=== PATIENT | female | born 1960 | race Caucasian/White ===

== ENCOUNTER 2016-10-12 12:39 | Emergency (ER) | payer OTHER ==
[2016-10-12 12:56] VITALS: BP 134/80
[2016-10-12] MEDS ORDERED: PREDNISONE 20 MG TABLET PO ONE (13:12)
[2016-10-12] MEDS ORDERED: LORATADINE 10 MG TABLET PO ONE (13:12)
[2016-10-12] MEDS ORDERED: FAMOTIDINE 20 MG TABLET PO ONE (13:12)
--- NOTE | 2016-10-12 13:20 | ER Document Report ---
HPI - HPI Patient complains to provider of: Bee sting left arm Onset: Just prior to arrival Onset/Duration: Sudden Quality of pain: Burning Severity: Mild Pain Level: 2 Context: Patient states she was stung under her left arm by a bee about an hour ago. 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 Denies shortness of breath or difficulty swallowing at this time. Associated Symptoms: None Exacerbated by: Denies Relieved by: Denies Similar symptoms previously: Yes Recently seen / treated by doctor: No - ROS ROS below otherwise negative: Yes Systems Reviewed and Negative: Yes All other systems reviewed and negative - CONSTITUTIONAL Constitutional: DENIES: Fever - EENT EENT: DENIES: Sore Throat - NEURO Neurology: DENIES: Headache - CARDIOVASCULAR Cardiovascular: DENIES: Chest pain - RESPIRATORY Respiratory: DENIES: Trouble Breathing - GASTROINTESTINAL Gastrointestinal: DENIES: Abdominal Pain - URINARY Urinary: DENIES: Dysuria - MUSCULOSKELETAL Musculoskeletal: REPORTS: Extremity pain - Burning left upper arm - DERM Skin Color: Erythema Skin Problems: Rash <JOANNA CARDOSO - Last Filed: 10/12/16 13:29> Past Medical History - General Information source: Patient - Social History Smoking Status: Current Every Day Smoker Cigarette use (# per day): Yes Frequency of alcohol use: Occasional Drug Abuse: None Lives with: Family Family History: Reviewed & Not Pertinent Patient has suicidal ideation: No Patient has homicidal ideation: No Pulmonary Medical History: Reports: Hx Asthma, Other - Seasonal allergies Past Surgical History: Reports: Hx Appendectomy, Hx Section, Hx Tonsillectomy <JOANNA CARDOSO - Last Filed: 10/12/16 13:29> Vertical Provider Document - CONSTITUTIONAL Agree With Documented VS: Yes Exam Limitations: No Limitations General Appearance: WD/WN, No Apparent Distress - INFECTION CONTROL TRAVEL OUTSIDE OF THE [place] IN LAST 30 DAYS: No - HEENT HEENT: Atraumatic, Normal ENT Exam, Normocephalic - NECK Neck: Normal Inspection, Supple - RESPIRATORY Respiratory: Breath Sounds Normal, No Respiratory Distress O2 Sat by Pulse Oximetry: 97 - CARDIOVASCULAR Cardiovascular: Regular Rate, Regular Rhythm - MUSCULOSKELETAL/EXTREMETIES Musculoskeletal/Extremeties: ISAIAH SANCHEZ - NEURO Level of Consciousness: Awake, Alert, Appropriate - DERM Integumentary: Warm, Dry, Rash - Redness noted to left inner upper arm. No stinger from bee noted. <JOANNA CARDOSO - Last Filed: 10/12/16 13:29> Course - Vital Signs Vital signs: Temp Pulse Resp BP Pulse Ox 98.4 F 85 18 134/80 H 97 10/12/16 12:55 10/12/16 12:55 10/12/16 12:55 10/12/16 12:55 10/12/16 12:55 <WALKERJOANNA LIZETTE - Last Filed: 10/12/16 13:29> - Vital Signs Vital signs: Temp Pulse Resp BP Pulse Ox 98.4 F 85 18 134/80 H 97 10/12/16 12:55 10/12/16 12:55 10/12/16 12:55 10/12/16 12:55 10/12/16 13:30 <MAYTE MARTINEZ - Last Filed: 10/13/16 14:38> Discharge <WALKERJOANNA LIZETTE - Last Filed: 10/12/16 13:29> <MAYTE MARTINEZ - Last Filed: 10/13/16 14:38> - Discharge Clinical Impression: Local reaction to bee sting Qualifiers: Encounter type: initial encounter Injury intent: accidental or unintentional Qualified Code(s): T63.441A - Toxic effect of venom of bees, accidental ( unintentional), initial encounter Condition: Good Disposition: HOME, SELF-CARE Additional Instructions: Meds as prescribed Cool compresses to area of bee sting Call 911 or to emergency room immediately for any difficulty swallowing or breathing Return as needed Prescriptions: Epinephrine [Epipen] 0.3 mg IJ ONCE PRN #1 auto.injct PRN Reason: Famotidine [Pepcid] 20 mg PO BID #12 tablet Hydroxyzine Pamoate [Vistaril 25 mg Capsule] 25 mg PO PRN PRN #30 capsule PRN Reason: Prednisone [Deltasone 10 mg Tablet] 10 mg PO ASDIR PRN #15 tablet PRN Reason: Forms: Return to Work
== END 2016-10-12 13:46 | disposition home or self-care (01) ==
LOC: ER 12:39
DX: T63.441A Toxic effect of venom of bees, accidental (unintentional), initial encounter (principal); F17.210 Nicotine dependence, cigarettes, uncomplicated
CPT/HCPCS: 99282; J7512